=== PATIENT | female | born 1970 | race Caucasian/White ===

== ENCOUNTER → 2022-10-19 | Outpatient (CLI) | payer OTHER ==
[2022-10-19 10:12] LABS: BASOPHILS % (AUTO) 0.2 % (0.0-2.0); EOSINOPHILS % (AUTO) 1.1 % (1.0-6.0); HEMATOCRIT 38.3 % (36-46); HEMOGLOBIN 11.9 g/dL (12.0-16.0); LYMPHOCYTES % (AUTO) 31.4 % (22.0-44.0); MEAN CORPUSCULAR VOLUME 64 fL (80-100); MONOCYTES # (AUTO) 0.4 K/uL (0.1-1.0); MONOCYTES % (AUTO) 6.7 % (2.0-9.0); NEUTROPHILS # (AUTO) 3.9 K/uL (1.8-7.7); NEUTROPHILS % (AUTO) 60.6 % (40.0-70.0); PLATELET COUNT (AUTO) 265 K/uL (150-450); RED BLOOD CELL COUNT(AUTO) 5.96 MIL/uL (4.00-5.20); RED CELL DISTRIBUTION WIDTH 16.2 % (11.5-14.5)
[2022-10-19 10:18] LABS: HEMOGLOBIN A1C 6.5 % (3.8-5.6)
[2022-10-19 10:32] LABS: ALANINE AMINOTRANSFERASE 19 U/L (12-78); ALKALINE PHOSPHATASE 77 U/L (46-116); ANION GAP 6 mmol/L (8-16); ASPARTATE AMINOTRANSFERASE 15 U/L (15-37); BILIRUBIN,TOTAL 0.7 mg/dL (0.1-1.0); CALCIUM, TOTAL 9.2 mg/dL (8.8-10.5); CARBON DIOXIDE 31 mmol/L (22-29); CHLORIDE 105 mmol/L (98-107); CHOL/HDL RATIO 3.2 (3.9-5.7); CHOLESTEROL 192 mg/dL (131-200); CREATININE 0.57 mg/dL (0.60-1.30); GLUCOSE,RANDOM 153 mg/dL (70-110); HDL CHOLESTEROL 60 mg/dL (40-60); LDL CHOL (CALC.) 118 mg/dL (0-130); SODIUM SERUM 142 mmol/L (136-145); THYROID STIMULATING HORMONE 0.72 uIU/mL (0.36-3.74); TOTAL PROTEIN, SERUM 7.6 g/dL (6.4-8.2); TRIGLYCERIDES 68 mg/dL (15-150); UREA NITROGEN, BLOOD 11 mg/dL (7-18)
[2022-10-19 10:41] LABS: GLOMERULAR FILTR. RATE CALC > 60 mL/min (>60)
[2022-10-19 11:58] LABS: VITAMIN D,TOTAL (25-0H) 33 ng/mL (30-100)
[2022-10-19 12:06] LABS: VITAMIN B12 LEVEL 541 pg/mL (211-911)
[2022-10-19 12:48] LABS: FOLATE SERUM > 24.0 ng/mL (5.4-)
== END | disposition home or self-care (01) ==
LOC: LABMN 09:43
PROVIDERS: ATTEND Internal Medicine Geriatric Medicine
DX: Z00.00 Encounter for general adult medical examination without abnormal findings (principal)
CPT/HCPCS: 80053; 80061; 82043; 82306; 82570; 82607; 82746; 83036; 84443; 85025

== ENCOUNTER 2022-11-02 10:03 | Emergency (ER) | payer OTHER ==
[~2022-11-02] VITALS: Ht 154.9 cm; Wt 79.5 kg
[2022-11-02] MEDS ORDERED: ACETAMINOPHEN 500 MG TABLET PO ONE (10:30)
[2022-11-02 10:41] LABS: COVID AG,FIA SOURCE NASAL SWAB
[2022-11-02 11:21] VITALS: BP 133/65
[2022-11-02 11:28] LABS: INFLUENZA TYPE A NEGATIVE FOR TYPE A (NEGATIVE); INFLUENZA TYPE B NEGATIVE FOR TYPE B (NEGATIVE)
== END 2022-11-02 12:34 | disposition home or self-care (01) ==
LOC: EMS 10:03
DX: E11.9 Type 2 diabetes mellitus without complications (principal); I10 Essential (primary) hypertension; Z20.822 Contact with and (suspected) exposure to COVID-19
CPT/HCPCS: 87804; 99283

== ENCOUNTER 2024-02-10 13:36 | Emergency (ER) | payer OTHER ==
[~2024-02-10] VITALS: Ht 152.4 cm; Wt 81.8 kg
[2024-02-10] MEDS ORDERED: GLIP10TA9 PO (13:42)
[2024-02-10] MEDS ORDERED: ATOR10TA69 PO (13:42)
[2024-02-10] MEDS ORDERED: VALS80TA32 PO (13:42)
[2024-02-10 13:45] VITALS: TEMP 98.6
[2024-02-10 15:20] VITALS: BP 138/74; PULSE 88; RESP 18
[2024-02-11 08:06] LABS: HEPATITIS C AB (EIA) Non Reactive (Non Reactive)
== END 2024-02-10 15:22 | disposition home or self-care (01) ==
LOC: EMS 14:18
DX: S61.032A Puncture wound without foreign body of left thumb without damage to nail, initial encounter (principal); E11.9 Type 2 diabetes mellitus without complications; I10 Essential (primary) hypertension; W26.8XXA Contact with other sharp object(s), not elsewhere classified, initial encounter; Y93.89 Activity, other specified; Y92.89 Other specified places as the place of occurrence of the external cause; Y99.8 Other external cause status
CPT/HCPCS: 82962; 86706; 86803; 99283

== ENCOUNTER → 2024-04-10 | Outpatient (CLI) | payer OTHER ==
[~2024-04-10] MED LIST: ATOR10TA69 PO; GLIP10TA9 PO; VALS80TA32 PO
[2024-04-10 09:26] LABS: BASOPHILS % (AUTO) 0.2 % (0.0-2.0); EOSINOPHILS % (AUTO) 1.6 % (1.0-6.0); HEMATOCRIT 39.2 % (36-46); HEMOGLOBIN 12.4 g/dL (12.0-16.0); LYMPHOCYTES # (AUTO) 2.2 K/uL (1.0-4.8); LYMPHOCYTES % (AUTO) 33.1 % (22.0-44.0); MEAN CORPUSCULAR HEMOGLOBIN 20.2 pg (26.0-34.0); MEAN CORPUSCULAR HGB CONC 31.7 G/dL (31.0-37.0); MEAN CORPUSCULAR VOLUME 64 fL (80-100); MONOCYTES # (AUTO) 0.4 K/uL (0.1-1.0); MONOCYTES % (AUTO) 6.4 % (2.0-9.0); NEUTROPHILS # (AUTO) 3.8 K/uL (1.8-7.7); NEUTROPHILS % (AUTO) 58.7 % (40.0-70.0); PLATELET COUNT (AUTO) 248 K/uL (150-450); RED BLOOD CELL COUNT(AUTO) 6.15 MIL/uL (4.00-5.20); RED CELL DISTRIBUTION WIDTH 15.6 % (11.5-14.5); WHITE BLOOD COUNT (AUTO) 6.5 K/uL (4.5-11.0)
[2024-04-10 09:28] LABS: RBC MORPHOLOGY COMMENT ABNORMAL RBC MORPH
[2024-04-10 09:45] LABS: HEMOGLOBIN A1C 11.2 % (3.8-5.6)
[2024-04-10 09:48] LABS: ALANINE AMINOTRANSFERASE 27 U/L (12-78); ALBUMIN 3.8 g/dL (3.4-5.0); ALKALINE PHOSPHATASE 137 U/L (46-116); ANION GAP 9 mmol/L (8-16); ASPARTATE AMINOTRANSFERASE 17 U/L (15-37); BILIRUBIN,TOTAL 0.7 mg/dL (0.1-1.0); CALCIUM, TOTAL 8.8 mg/dL (8.8-10.5); CARBON DIOXIDE 28 mmol/L (22-29); CHLORIDE 101 mmol/L (98-107); CHOL/HDL RATIO 2.7 (3.9-5.7); CHOLESTEROL 159 mg/dL (131-200); CREATININE 0.79 mg/dL (0.60-1.30); GLOMERULAR FILTR. RATE CALC > 60 mL/min (>60); GLUCOSE,RANDOM 364 mg/dL (70-110); HDL CHOLESTEROL 59 mg/dL (40-60); LDL CHOL (CALC.) 82 mg/dL (0-130); POTASSIUM 3.8 mmol/L (3.5-5.1); SODIUM SERUM 138 mmol/L (136-145); THYROID STIMULATING HORMONE 1.01 uIU/mL (0.36-3.74); TOTAL PROTEIN, SERUM 7.4 g/dL (6.4-8.2); TRIGLYCERIDES 88 mg/dL (15-150); UREA NITROGEN, BLOOD 11 mg/dL (7-18)
[2024-04-11 14:06] LABS: CREATININE, URINE (mALB) 111.6 mg/dL (Not Estab.)
== END | disposition home or self-care (01) ==
LOC: LABMN 08:51
PROVIDERS: ATTEND Internal Medicine Geriatric Medicine
DX: I12.9 Hypertensive chronic kidney disease with stage 1 through stage 4 chronic kidney disease, or unspecified chronic kidney disease (principal); E11.22 Type 2 diabetes mellitus with diabetic chronic kidney disease; N18.1 Chronic kidney disease, stage 1; E78.5 Hyperlipidemia, unspecified; E11.59 Type 2 diabetes mellitus with other circulatory complications
CPT/HCPCS: 80053; 80061; 82043; 82306; 82570; 83036; 84443; 85025

== ENCOUNTER 2025-02-13 22:45 | Emergency (ER) | payer OTHER ==
[~2025-02-13] VITALS: Ht 154.9 cm; Wt 78.2 kg
[~2025-02-13 22:45] MED LIST changes: +GLIP10TA16 PO; -GLIP10TA9 PO
[2025-02-13 22:48] VITALS: TEMP 98.1
[2025-02-13 23:41] LABS: BASOPHILS % (AUTO) 0.3 % (0.0-2.0); EOSINOPHILS % (AUTO) 1.6 % (1.0-6.0); HEMATOCRIT 36.9 % (36-46); HEMOGLOBIN 11.5 g/dL (12.0-16.0); LYMPHOCYTES # (AUTO) 2.8 K/uL (1.0-4.8); LYMPHOCYTES % (AUTO) 35.7 % (22.0-44.0); MEAN CORPUSCULAR HEMOGLOBIN 20.1 pg (26.0-34.0); MEAN CORPUSCULAR HGB CONC 31.1 G/dL (31.0-37.0); MEAN CORPUSCULAR VOLUME 65 fL (80-100); MONOCYTES # (AUTO) 0.6 K/uL (0.1-1.0); MONOCYTES % (AUTO) 7.7 % (2.0-9.0); NEUTROPHILS # (AUTO) 4.3 K/uL (1.8-7.7); NEUTROPHILS % (AUTO) 54.7 % (40.0-70.0); PLATELET COUNT (AUTO) 255 K/uL (150-450); RED BLOOD CELL COUNT(AUTO) 5.71 MIL/uL (4.00-5.20); RED CELL DISTRIBUTION WIDTH 16.1 % (11.5-14.5); WHITE BLOOD COUNT (AUTO) 7.8 K/uL (4.5-11.0)
[2025-02-13] MEDS: SODIUM CHLORIDE 0.9% 1,000 ML IV ONE (23:51)
[2025-02-13] MEDS: KETOROLAC TROMETHAMINE 30 MG/ML VIAL IVP ONE (23:52)
[2025-02-13 23:53] LABS: ANION GAP 7 mmol/L (8-16); CALCIUM, TOTAL 9.1 mg/dL (8.8-10.5); CARBON DIOXIDE 28 mmol/L (22-29); CHLORIDE 107 mmol/L (98-107); CREATININE 0.64 mg/dL (0.60-1.30); GLOMERULAR FILTR. RATE CALC > 60 mL/min (>60); GLUCOSE,RANDOM 119 mg/dL (70-110); POTASSIUM 3.8 mmol/L (3.5-5.1); SODIUM SERUM 142 mmol/L (136-145); UREA NITROGEN, BLOOD 12 mg/dL (7-18)
[2025-02-13] MEDS: DiphenhydrAMINE HCL 50 MG/ML VIAL IVP ONE (23:54)
[2025-02-13] MEDS: METOCLOPRAMIDE HCL 5 MG/ML 2 ML VIAL IVP ONE (23:54)
[2025-02-13 23:59] LABS: TROPONIN I-HIGH SENSITIVITY 27 ng/L (<51)
[2025-02-14 00:23] LABS: RBC MORPHOLOGY COMMENT ABNORMAL RBC MORPH
[2025-02-14 01:01] VITALS: BP 141/65; PULSE 91; RESP 16; O2SAT 98
== END 2025-02-14 01:56 | disposition home or self-care (01) ==
LOC: EMS 22:51
DX: R51.9 Headache, unspecified (principal); E11.9 Type 2 diabetes mellitus without complications; I10 Essential (primary) hypertension; Z79.84 Long term (current) use of oral hypoglycemic drugs; Z79.899 Other long term (current) drug therapy
CPT/HCPCS: 99284; 96374; 96375; 96361; 80048; 84484; 85025; 36415; J1885; J1200; J2765; J7030